=== PATIENT | female | born 1970 | race Caucasian/White ===

== ENCOUNTER → 2021-12-17 | Outpatient (CLI) | payer BC, SELFPAY ==
[2021-12-17 08:34] LABS: Microalbumin,Random Urine 7.9 mg/L (NO RANGE EST.); Microalbumin:Creatinine Ratio 10.4 mg/g CRE (<30 mg/g CRE)
[2021-12-17 08:51] LABS: Vitamin D,25 Hydroxy 42.1 ng/mL
[2021-12-17 09:05] LABS: ALB/GLOB Ratio 1.1 RATIO (0.9-2.4); AST(SGOT) 19 U/L (15-37); Alanine Aminotransfer ALT/SGPT 47 U/L (13-56); Albumin, Serum 3.8 g/dL (3.2-5.0); Alkaline Phosphatase 95 U/L (45-117); Anion Gap 6 (5-15); BUN 9 mg/dL (7-18); Calcium,Total 9.2 mg/dL (8.5-10.1); Chloride 104 mmol/L (98-107); Cholesterol 173 mg/dL (200); EST Glomerular Filtration Rate 71 mL/min (>60); Est Glom Filt Rate - Afr Amer 86 mL/min (>60); Globulin 3.6 g/dL (2.2-4.2); Glucose 134 mg/dL (74-106); High Density Lipoprotein 48 mg/dL; Potassium 4.2 mmol/L (3.5-5.1); Protein, Total 7.4 g/dL (6.4-8.2); Sodium Level 139 mmol/L (136-145); Thyroid Stim Hormone (TSH) 1.22 uIU/mL (0.358-3.74); Triglycerides 205 mg/dL; Very Low Density Lipoprotein 41 mg/dL (5-40)
== END | disposition home or self-care (01) ==
PROVIDERS: Referring Provider Nurse Practitioner Family; Visit Provider Nurse Practitioner Family
DX: E11.9 Type 2 diabetes mellitus without complications (principal); E55.9 Vitamin D deficiency, unspecified
CPT/HCPCS: 36415; 80053; 80061; 82043; 82306; 82570; 84443

== ENCOUNTER 2022-03-23 10:27 | Emergency (ER) | payer BC, SELFPAY ==
[2022-03-23 10:27] VITALS: BP 204/125; PULSE 89; RESP 18; TEMP 36; O2SAT 97; BMI 36.3
--- NOTE | 2022-03-23 10:59 | RAD_ITS ---
HISTORY: Neuro deficit, acute, stroke suspected. TECHNIQUE: XR Chest 1 View. COMPARISON: None. FINDINGS: CARDIOMEDIASTINAL BORDERS: Cardiac silhouette within normal limits in size. Mediastinal contour unremarkable. LUNGS: Radiographically clear. PLEURA: No pleural effusion or pneumothorax seen. OSSEOUS STRUCTURES: Mild degenerative change. RAD/Chest 1 View IMPRESSION: No acute cardiopulmonary process identified. Electronically Signed: Julienne Quick MD at 11:57 EST ,
--- NOTE | 2022-03-23 10:59 | CT_ITS ---
We are attempting to reach an attending provider to discuss findings. An addendum with communication details will be sent when the communication is complete. HISTORY: Neuro deficit, acute, stroke suspected. TECHNIQUE: Multiple axial images were obtained of the head without intravenous contrast. A radiation dose optimization technique was used for this scan. 252 images. COMPARISON: None. FINDINGS: BRAIN PARENCHYMA: No significant attenuation abnormality. No acute intra-axial hemorrhage. CSF SPACES: Cerebral ventricles, cortical sulci, and other extra-axial CSF spaces within normal limits in size for age. No midline shift or other significant mass effect. No acute extra-axial hemorrhage. OTHER: Intact calvarium. No significant air fluid levels in the paranasal sinuses or mastoid air cells. Unremarkable orbits. ASPECTS Score for Acute Strokes: 10 CT/STROKE Brain/Head without Cont IMPRESSION: No acute intracranial process identified. Electronically Signed: Julienne Quick MD at 12:18 EST ,
--- NOTE | 2022-03-23 10:59 | EKG12_ITS ---
Test Reason : GENERAL Blood Pressure : / mmHG Vent. Rate : 070 BPM Atrial Rate : 070 BPM P-R Int : 178 ms QRS Dur : 088 ms QT Int : 410 ms P-R-T Axes : 064 060 069 degrees QTc Int : 442 ms Normal sinus rhythm Normal ECG Confirmed by CHINEDU LEMA, RAFAEL ([id number]), news editor MCKENZIE BEAN ([id number]) on 03/24/2022 1:56:29 PM Referred By: Confirmed By:RAFAEL CHE MD
--- NOTE | 2022-03-23 11:00 | CT_ITS ---
HISTORY: Neuro deficit, acute, stroke suspected. TECHNIQUE: [place]/head and carotid CT angiogram protocol was performed after the intravenous administration of 100 mL Isovue 370. NASCET criteria using the distal ICAs for comparison were used for evaluation of stenoses. 3D reconstructions were reviewed. A radiation dose optimization technique was used for this scan. 1895 images. COMPARISON: CT head same day. FINDINGS: AORTIC ARCH AND BRANCHES: Normal anatomy, patent. RIGHT CCA: Motion artifact. No significant stenosis or occlusion. Mild atherosclerosis of the bifurcation. RIGHT ICA: No occlusion, significant stenosis or dissection. LEFT CCA: Motion artifact. No significant stenosis or occlusion. Mild atherosclerosis of the bifurcation. LEFT ICA: No occlusion, significant stenosis or dissection. Mild atherosclerosis of the origin. RIGHT VERTEBRAL ARTERY: No occlusion, significant stenosis or dissection. LEFT VERTEBRAL ARTERY: No occlusion, significant stenosis or dissection. SOFT TISSUES: Mildly enlarged right level 1 lymph node, which may be reactive. ICAs: No significant stenosis at the intracranial/visualized segments. ACAs: No significant stenosis at the visualized segments. MCAs: No significant stenosis at the visualized segments. duplicating machine mechanic: No significant stenosis at the visualized segments. BASILAR ARTERY: No significant stenosis. VERTEBRAL ARTERIES: No significant stenosis at the intradural/visualized segments. No evidence of intracranial aneurysm or vascular malformation. ICAs: No significant stenosis at the intracranial/visualized segments. Calcified plaque at both carotid siphons. ACAs: No significant stenosis at the visualized segments. MCAs: No significant stenosis at the visualized segments. duplicating machine mechanic: No significant stenosis at the visualized segments. BASILAR ARTERY: No significant stenosis. VERTEBRAL ARTERIES: No significant stenosis at the intradural/visualized segments. No evidence of intracranial aneurysm or vascular malformation. CT/STROKE CTA Head AND Neck W/Con IMPRESSION: Mild carotid atherosclerosis without significant stenosis or occlusion in the carotid or vertebral arteries of the neck. No evidence for large vessel occlusion or other significant focal vascular abnormality in the [place] region. N.B. : The above Results were Read Back by Julienne Quick MD to Mitesh [id number], and understanding confirmed on 03/23/2022 12:23:26 (ET). Electronically Signed: Julienne Quick MD at 12:24 EST ,
--- NOTE | 2022-03-23 11:02 | TELEMED_ITS ---
[facility] Telemed has confirmed receipt of a request for visit. This document confirms receipt of the order initiating the consult. To find the results of the consultation, please view the patient's reports for the scanned Telemed Consult.
[2022-03-23 11:16] LABS: Absolute Lymphocyte Count 2.93 X10^3/uL (0.83-4.51); Absolute Neutrophil Count 6.3 X10^3/uL (2.0-7.7); Basophil# 0.05 X10^3/uL; Basophil% 0.5 % (0-1); Eosinophil# 0.13 X10^3/uL; Eosinophils% 1.3 % (0-5); Hematocrit 48.9 % (37-47); Hemoglobin 16.5 g/dL (12.0-15.0); Lymphocyte # 2.93 X10^3/ul (0.83-4.51); Lymphocyte % 28.9 % (19-41); Mean Corp Hgb Conc 33.7 g/dL (32-36); Mean Corpuscular Hgb 29.3 pg (27.0-32.0); Mean Corpuscular Volume 86.9 fL (81-99); Mean Platelet Vol. 8.8 fl (6.2-12.0); Monocyte# 0.72 X10^3/uL; Monocyte% 7.1 % (0-10); NRBC Flagged by Analyzer 0 % (0-5); Neutrophil # 6.27 X10^3/uL (2.7-7.7); Neutrophil % 61.9 % (47-70); Platelet Count 252 K/mm3 (150-450); RBC Distribution Width CV 12.1 % (11.6-14.6); RBC Distribution Width SD 38.5 fl (35.1-43.9); Red Blood Count 5.63 M/mm3 (4.2-5.4); White Blood Count 10.1 K/mm3 (4.4-11.0)
[2022-03-23 11:23] VITALS: O2SAT 97
[2022-03-23 11:23] LABS: International Normalized Ratio 0.9; Prothrombin Time (Protime)PT. 12.3 SECONDS (11.7-14.9)
[2022-03-23 11:24] LABS: Partial Thromboplast Time 28.9 Seconds (24.1-36.2)
[2022-03-23 11:40] LABS: Anion Gap 7 (5-15); BUN 11 mg/dL (7-18); BUN/Creat Ratio 11.4 RATIO (10-20); Calcium,Total 9.6 mg/dL (8.5-10.1); Chloride 105 mmol/L (98-107); Creatinine, Serum 0.97 mg/dL (0.55-1.02); EST Glomerular Filtration Rate 65 mL/min (>60); Est Glom Filt Rate - Afr Amer 79 mL/min (>60); Estimated Creatinine Clearance 70.77 ml/min; Glucose 121 mg/dL (74-106); Potassium 4.3 mmol/L (3.5-5.1); Sodium Level 139 mmol/L (136-145); Troponin-I HS 4 pg/mL (3.0-54.0)
[2022-03-23 13:11] VITALS: BP 147/96; PULSE 70; RESP 15; O2SAT 98
--- NOTE | 2022-03-23 14:07 | EDS_ITS ---
HPI History of Present Illness Chief Complaint: Eye Problem Narrative Narrative: 51-year-old female presenting with visual disturbance. She states is predominantly in her left eye and she feels pain above her eye. She reports that about a week ago she fell and hit her head on the right side. On Thursday morning when she woke up she noticed the symptoms. She states that when she tilts her head to the right her vision is normal. When she tilts her head back or to the left she gets vertical diplopia in the left eye. She denies any other trauma. She denies nausea, vomiting. She has no headache. She is walking with a stable gait. She also reports he is able to drive her car without much difficulty. No slurred speech, paresthesias, confusion PFSH PFSH Medical History High cholesterol Home Medications acyclovir 200 mg capsule 200 mg PO BID 09/05/21 [History Last Taken Unknown] cholecalciferol (vitamin D3) 50 mcg (2,000 unit) capsule 50 mcg PO DAILY 09/05/21 [History Last Taken Unknown] lisinopril 20 mg tablet 20 mg PO DAILY 09/05/21 [History Last Taken Unknown] metformin 1,000 mg tablet 1,000 mg PO BID #180 tabs 09/05/21 [Rx Last Taken Unknown] rosuvastatin 10 mg tablet 10 mg PO DAILY 09/05/21 [History Last Taken Unknown] pen needle, diabetic 32 gauge x 5/32 (BD Ultra-Fine Kaelyn Pen Needle) #100 ea 10/08/21 [Rx Last Taken Unknown] amlodipine 5 mg tablet 5 mg PO DAILY #90 tabs 10/17/21 [Rx Last Taken Unknown] omega 1-phy-jht-fish oil 60 mg-90 mg-500 mg capsule (Fish Oil) 1 cap PO DAILY #90 caps 01/06/22 [Rx Last Taken Unknown] insulin detemir U-100 100 unit/mL (3 mL) subcutaneous pen (Levemir FlexTouch U- 100 Insulin) 40 unit (0.4 mL) subcut QHS #12 mL 02/27/22 [Rx Last Taken Unknown] tirzepatide 2.5 mg/0.5 mL subcutaneous pen injector (Mounjaro) 2.5 mg subcut TH 03/23/22 [History Last Taken Unknown] Allergy/AdvReac Type Severity Reaction Status Date / Time No Known Allergies Allergy Verified 03/23/22 10:29 Social History Smoking Status: Current every day smoker tobacco type: cigarettes ROS ROS ED Review of Systems ROS Unobtainable: Denies due to encephalopathy Constitutional Constitutional ED: Denies chills or fever(s) Eyes Eyes: Reports change in vision left ENT ENT ED: Denies ear pain or rhinorrhea Cardiovascular Cardiovascular: Denies chest pain or palpitations Respiratory/Chest Respiratory/Chest: Denies cough or dyspnea Gastrointestinal Gastrointestinal: Denies abdominal pain or constipation Genitourinary Genitourinary ED: Denies dysuria or hematuria Musculoskeletal Musculoskeletal: Denies arthralgias or back pain Integumentary Denies abscess or Abrasions Neurologic Neurologic: Denies headache(s) or paresthesias Psychiatric Psychiatric: Denies anxiety or depression EXAM Physical Exam Const Vital Signs: 03/23/22 10:27 03/23/22 11:23 03/23/22 13:11 Temperature 96.8 F L Temperature Source Temporal Pulse Rate 89 70 Respiratory Rate 18 15 Blood Pressure 204/125 H 147/96 H Blood Pressure Mean 151 113 Pulse Ox 97 97 98 Oxygen Delivery Method Room Air Room Air Room Air Positive well nourished General Appearance ED: NAD HEENT Reports TM's clear atraumatic Tympanic Membrane ED: Yes TM's clear bilateral Neck no lymphadenopathy Resp normal respiratory effort Cardio regular rate and regular rhythm GI non-tender Neuro oriented x3, moves all extremities and no sensory deficits noted Sensorium / Orientation: alert Motor Exam: strength 5/5 throughout Skin no wounds MDM MDM MDM Narrative Medical decision making narrative: Patient presenting with diplopia which she states is vertical. This started after a head injury over a week ago. I did not call a stroke team because of the timeframe. She would be outside the window for tPA even if she needed it. I will obtain work-up. With head tilting to the right her vision is clear with head tilting to the left and posteriorly she states she gets vertical diplopia. She has no other neurologic deficits. She feels otherwise well. Because the patient has a history of traumatic injury I did obtain lab work and imaging. I also included an EKG which on my interpretation is sinus rhythm with a ventricular to 70 bpm without sign of ischemic change or dysrhythmia. Her chest x-ray on my interpretation shows no acute cardiopulmonary process. Radiology interpreted this and agrees. CBC and BMP are unremarkable. PT/INR normal. CT of the brain and CTA of the head and neck are both negative. I did speak with the [facility] neurologist to try to receive a consult from them given that she is presenting with a 4th nerve palsy most likely. They did attempt tobeam in initially but apparently did not get a good exam on her. After her imaging has been resulted there has been delay secondary to them not beaming back in for consult. This was explained to the patient. We did recall them to come evaluate the patient. Her initial blood pressure was slightly elevated at 204/125. But after cycling this is now 147/96. I do not believe her blood pressure is a cause of the symptoms. I was unable to get an [facility] consult emergently. I did speak with Dr. Valle from ophthalmology. I discussed with him that I believe this is a 4th nerve palsy and given that its been a week I do not know that there is anything emergent about it. After discussion he stated that he could follow-up with her tomorrow and took her name. He states that she can call his office at 8 AM and he will get her in tomorrow. If she needs an MRI he can obtain that. Patient was amenable to this. She was discharged home in stable condition. Impression: 1. 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 Labs: Laboratory Results - last 24 hr 03/23/22 03/23/22 03/23/22 11:05 11:05 11:05 WBC 10.1 RBC 5.63 H Hgb 16.5 H Hct 48.9 H MCV 86.9 MCH 29.3 MCHC 33.7 RDW Std Deviation 38.5 RDW Coeff of Anabel 12.1 Plt Count 252 MPV 8.8 Immature Gran % (Auto) 0.300 Neut % (Auto) 61.9 Lymph % (Auto) 28.9 [place] % (Auto) 7.1 Eos % (Auto) 1.3 Baso % (Auto) 0.5 Absolute Neuts (auto) 6.3 Absolute Lymphs (auto) 2.93 Nucleated RBC % 0 PT 12.3 INR 0.9 APTT 28.9 Sodium 139 Potassium 4.3 Chloride 105 Carbon Dioxide 27.0 Anion Gap 7 BUN 11 Creatinine 0.97 Estim Creat Clear Calc 70.77 Est GFR (MDRD) Af Amer 79 Est GFR (MDRD) Non-Af 65 BUN/Creatinine Ratio 11.4 Glucose 121 H Calcium 9.6 Troponin I High Sens 4 Radiography Diagnostic Testing: Clinical Impression(s) from Imaging Studies Brain CT 03/23/22 10:59 IMPRESSION: No acute intracranial process identified. Electronically Signed: Julienne Quick MD at 12:18 EST , ADDENDUM: 03/23/22 1230 IMPRESSION: No acute intracranial process identified. N.B. : The above Results were Read Back by Julienne Quick MD to Mitesh Friedman MD, and understanding confirmed on 03/23/2022 12:23:23 (ET). Electronically Signed: Julienne Quick MD at 12:18 EST , Chest X-Ray 03/23/22 10:59 IMPRESSION: No acute cardiopulmonary process identified. Electronically Signed: Julienne Quick MD at 11:57 EST , Head/Neck CTA 03/23/22 11:00 IMPRESSION: Mild carotid atherosclerosis without significant stenosis or occlusion in the carotid or vertebral arteries of the neck. No evidence for large vessel occlusion or other significant focal vascular abnormality in the [place] region. N.B. : The above Results were Read Back by Julienne Quick MD to Mitesh Friedman MD, and understanding confirmed on 03/23/2022 12:23:26 (ET). Electronically Signed: Julienne Quick MD at 12:24 EST , ADDENDUM: 03/23/22 1231 IMPRESSION: Mild carotid atherosclerosis without significant stenosis or occlusion in the carotid or vertebral arteries of the neck. No evidence for large vessel occlusion or other significant focal vascular abnormality in the [place]. N.B. : The above Results were Read Back by Julienne Quick MD to Mitesh [id number], and understanding confirmed on 03/23/2022 12:23:26 (ET). Electronically Signed: Julienne Quick MD at 12:24 EST , Discharge Plan Triage Chief Complaint: Eye Problem ED Provider: Mitesh Garcia Dx/Rx/DC Orders Instructions: ED Double Vision (Diplopia) Prescriptions: No Action lisinopril 20 mg tablet 20 mg PO DAILY rosuvastatin 10 mg tablet 10 mg PO DAILY acyclovir 200 mg capsule 200 mg PO BID cholecalciferol (vitamin D3) 50 mcg (2,000 unit) capsule 50 mcg PO DAILY metformin 1,000 mg tablet 1,000 mg PO BID Qty: 180 3RF amlodipine 5 mg tablet 5 mg PO DAILY Qty: 90 3RF Mounjaro 2.5 mg/0.5 mL pen injector 2.5 mg subcut TH (DME) pen needle, diabetic [BD Ultra-Fine Kaelyn Pen Needle] 32 gauge x 5/32 needle See Rx Instructions .Route Qty: 100 3RF Rx Instructions: once daily omega 9-ezq-nvq-fish oil [Fish Oil] 60-90-500 mg capsule 1 cap PO DAILY Qty: 90 3RF Levemir FlexTouch U-100 Insuln 100 unit/mL (3 mL) insulin pen 40 unit subcut QHS Qty: 12 3RF Primary Care Provider: Taisha Villarreal ACADEMIC ADMINISTRATOR Referrals: Edward Valle MD [Med Staff - Active Staff] - 1 Day Older,Taisha ACADEMIC ADMINISTRATOR, ACADEMIC ADMINISTRATOR-C [Primary Care Provider] - Disposition Disposition: Home, Self Care
--- NOTE | 2022-03-23 15:06 | ED.RN ---
AT 1100, THIS RN RECEIVED PHONE CALL FROM [facility] TELE-NEUROLOGY ASKING TO SEE PT. SOC REQUESTING THAT PT HAVE CT DONE PRIOR TO THEM BEAMING IN TO EVALUATE THE PATIENT. THIS RN ARRANGES FOR PT TO TAKEN TO CT RIGHT AWAY, AND REPORTS THAT SHE WILL CALL THE SOC LINE BACK SOON PT RETURNS FROM HAVING IMAGES COMPLETED. 1120- THIS RN CALLS BACK TO SOC TO REPORT PT HAS RETURNED TO THE ROOM. SOC REPORTS THAT SHE WILL BE EVALUATED SHORTLY. 1400- PRIMARY RN INFORMS THIS RN THAT THE PT HAS STILL NOT BEEN EVALUATED BY SOC. THIS RN CONTACTS SOC WHO REPORTS THAT PT IS STILL IN LINE TO BE SEEN AND THAT SHE SHOULD BE EVALUATED IN 10-20 MINUTES. 1420- THIS RN IS INFORMED BY PRIMARY RN THAT PT STILL NEEDS TO BE EVALUATED BY SOC. THIS RN CALLS BACK TO SOC. PER SOC WORKER THE ORDER WAS PLACED FOR A ROUTINE EXAMINATION AND NOT A STAT EXAMINATION. THIS RN REPORTS THAT OUR ED MD ORDERED THE CONSULT A STAT CONSULT. SOC REPORTS THAT PT IS STILL IN LINE TO BE SEEN. 1440- PT REPORTS THAT SHE WANTS TO LEAVE BECAUSE SHE STILL HAS NOT BEEN EVALUATED BY SOC YET. DR. RICHARDS INFORMED.
== END 2022-03-23 15:17 | disposition home or self-care (01) ==
PROVIDERS: Emergency Provider Student in an Organized Health Care Education/Training Program; PCP Nurse Practitioner; Visit Provider Student in an Organized Health Care Education/Training Program
DX: G51.0 Bell's palsy (principal); Z79.4 Long term (current) use of insulin; E78.00 Pure hypercholesterolemia, unspecified; F17.210 Nicotine dependence, cigarettes, uncomplicated; Z79.84 Long term (current) use of oral hypoglycemic drugs; Z79.899 Other long term (current) drug therapy
CPT/HCPCS: 70450; 70496; 70498; 71045; 80048; 84484; 85025; 85610; 85730; 93005; 99285; Q9967; A4216

== ENCOUNTER → 2022-12-25 | Outpatient (CLI) | payer BC, SELFPAY ==
[2022-12-25 10:15] LABS: Vitamin D,25 Hydroxy 56.1 ng/mL
[2022-12-25 10:28] LABS: ALB/GLOB Ratio 1.1 RATIO (0.9-2.4); AST(SGOT) 21 U/L (15-37); Alanine Aminotransfer ALT/SGPT 56 U/L (13-56); Alkaline Phosphatase 101 U/L (45-117); Anion Gap 4 (5-15); BUN 10 mg/dL (7-18); BUN/Creat Ratio 10.8 RATIO (10-20); Calcium,Total 9.6 mg/dL (8.5-10.1); Chloride 107 mmol/L (98-107); Cholesterol 129 mg/dL (200); Creatinine, Serum 0.93 mg/dL (0.55-1.02); EST Glomerular Filtration Rate 68 mL/min (>60); Est Glom Filt Rate - Afr Amer 82 mL/min (>60); Globulin 3.6 g/dL (2.2-4.2); Glucose 103 mg/dL (74-106); High Density Lipoprotein 55 mg/dL; Potassium 4.3 mmol/L (3.5-5.1); Protein, Total 7.6 g/dL (6.4-8.2); Sodium Level 140 mmol/L (136-145); Thyroid Stim Hormone (TSH) 0.83 uIU/mL (0.358-3.74); Triglycerides 102 mg/dL; Very Low Density Lipoprotein 20 mg/dL (5-40)
[2022-12-25 10:39] LABS: Microalbumin,Random Urine 10.3 mg/L (NO RANGE EST.); Microalbumin:Creatinine Ratio 17.5 mg/g CRE (<30 mg/g CRE)
== END | disposition home or self-care (01) ==
LOC: LAB 09:06
PROVIDERS: PCP Nurse Practitioner; Referring Provider Nurse Practitioner Family; Visit Provider Nurse Practitioner Family
DX: E78.00 Pure hypercholesterolemia, unspecified (principal); E11.9 Type 2 diabetes mellitus without complications; E66.9 Obesity, unspecified; E55.9 Vitamin D deficiency, unspecified; I10 Essential (primary) hypertension
CPT/HCPCS: 36415; 80053; 80061; 82043; 82306; 82570; 84443

== ENCOUNTER 2023-04-08 08:23 | Emergency (ER) | payer BC, SELFPAY ==
[2023-04-08 08:24] VITALS: BP 136/87; PULSE 86; RESP 14; TEMP 36.2; O2SAT 100; BMI 32.6
--- NOTE | 2023-04-08 08:50 | EX.ED.DYSGE1 ---
HPI History of Present Illness Chief Complaint: Palpitations Informant: patient Narrative Narrative: 52-year-old female presenting to the emergency room chief complaint of palpitations. Patient states that during the night last night she had about 4 episodes where she would wake from sleep with a fast heart rate. She states it would slow down speed up again. She felt her heart beating strong. Patient denies any chest pain or shortness of breath. She does note that she is under significant amount of stress that she is buying a house. Patient denies any new medications but did have her tirzepatide increased about 1 month ago. No known thyroid issues. She drinks 2 cups of coffee per day with chicory in it. She has not felt the symptoms in the past. She does note that she probably has a degree of sleep apnea but does not have a formal sleep study. She does not use CPAP. [facility] Medical History (Updated 04/08/23 @ 09:[address] Devante Lee, ) Diabetes High cholesterol Hypertension Home Medications acyclovir 200 mg capsule 200 mg PO BID 09/05/21 [History Last Taken Unknown] lisinopril 20 mg tablet 20 mg PO DAILY 09/05/21 [History Last Taken Unknown] rosuvastatin 10 mg tablet 10 mg PO DAILY 09/05/21 [History Last Taken Unknown] pen needle, diabetic 32 gauge x 5/32 (BD Ultra-Fine Kaelyn Pen Needle) #100 ea 10/08/21 [Rx Last Taken Unknown] metformin 1,000 mg tablet 1,000 mg PO BID #180 tabs 07/30/22 [Rx Last Taken Unknown] Levemir FlexPen 100 unit/mL (3 mL) solution subcutaneous insulin pen (insulin detemir U-100) 40 unit (0.4 mL) subcut QHS #45 mL 09/01/22 [Rx Last Taken Unknown] amlodipine 5 mg tablet 5 mg PO DAILY #90 tabs 11/10/22 [Rx Last Taken Unknown] cholecalciferol (vitamin D3) 50 mcg (2,000 unit) capsule 50 mcg PO DAILY #30 caps 11/10/22 [Rx Last Taken Unknown] tirzepatide 10 mg/0.5 mL subcutaneous pen injector (Mounjaro) 10 mg (0.5 mL) subcut QWEEK #2 mL 12/25/22 [Rx Last Taken Unknown] tirzepatide 7.5 mg/0.5 mL subcutaneous pen injector (Mounjaro) 7.5 mg (0.5 mL) subcut QWEEK #2 mL 01/12/23 [Rx Last Taken Unknown] omega 1-drb-rse-fish oil 60 mg-90 mg-500 mg capsule (Fish Oil) 1 cap PO DAILY #90 caps 01/22/23 [Rx Last Taken Unknown] Allergy/AdvReac Type Severity Reaction Status Date / Time No Known Allergies Allergy Verified 04/08/23 08:25 Social History Smoking Status: Current every day smoker tobacco type: cigarettes ROS ROS ED Constitutional Constitutional ED: Denies chills, fever(s) or weight loss Eyes Eyes: Denies change in vision or diplopia ENT ENT ED: Denies ear pain, rhinorrhea or sore throat Cardiovascular Cardiovascular: Reports palpitations and racing heartbeat; Denies chest pain or orthopnea Respiratory/Chest Respiratory/Chest: Denies cough, dyspnea or orthopnea Gastrointestinal Gastrointestinal: Denies abdominal pain, diarrhea, nausea or vomiting Genitourinary Genitourinary ED: Denies dysuria, hematuria or urinary frequency Musculoskeletal Musculoskeletal: Denies arthralgias or myalgias Integumentary Denies abscess or rash Neurologic Neurologic: Denies headache(s) or weakness Psychiatric Psychiatric: Denies anxiety, depression, suicidal ideation or suicidal thoughts Endocrine Endocrinology: Denies polydipsia, polyphagia or polyuria Allergic/Immunologic Allergic/Immunologic ED: Denies mouth swelling, tongue swelling or urticaria EXAM Physical Exam Const Vital Signs: 04/08/23 08:24 04/08/23 08:23 Temperature 97.1 F L Temperature Source Temporal Pulse Rate 86 Respiratory Rate 14 Respiratory Effort Normal Blood Pressure 136/87 H Blood Pressure Mean 103 Pulse Ox 100 Oxygen Delivery Method Room Air Positive well nourished and well developed General Appearance ED: well developed HEENT Reports normocephalic, head/scalp atraumatic and moist mucous membranes Eyes PERRL and EOMs intact bilaterally Neck no lymphadenopathy, supple and no JVD Resp normal respiratory effort and clear to auscultation bilaterally Cardio regular rate, regular rhythm and no murmurs GI normal to inspection, nondistended, normoactive bowel sounds and non-tender Palpation: soft Back/Spine no CVA tenderness and normal ROM Extremity normal to inspection General Extremety ED: Negative for edema General Extremity: Negative for edema Neuro oriented x3 and CN's II-XII intact bilaterally Sensorium / Orientation: alert Motor Exam: strength 5/5 throughout Psych mental status grossly normal Mood & Affect: Negative for depressed or tearful Skin no rashes or lesions noted and no wounds MDM MDM MDM Narrative Medical decision making narrative: My independent interpretation of the chest x-ray is no acute process. Normal mediastinal silhouette. Patient has had no events on the monitor and remains in a normal sinus rhythm. Hemoglobin 14.9. Sodium 137 potassium 4.0 magnesium 2.4 troponin high-sensitivity at 6 TSH is 0.81. I spoke with the patient regarding her symptoms. At this point her workup is negative. My recommendation is that she follow-up with primary care. If she continues to have intermittent symptoms she may need further cardiac evaluation such as echocardiogram and/or Holter monitor. She understands return instructions. We talked about how to take her heart rate by feeling the radial or carotid pulse. Patient is comfortable with follow-up. History & Record Review Discussion w/independent historian: Patient Lab Data Attestation: I reviewed the patient's lab results. Labs: Laboratory Results - last 24 hr 04/08/23 08:24 WBC 7.6 RBC 5.02 Hgb 14.9 Hct 45.3 MCV 90.2 MCH 29.7 MCHC 32.9 RDW Std Deviation 43.5 RDW Coeff of [place]abel 13.2 Plt Count 252 MPV 9.1 Immature Gran % (Auto) 0.300 Neut % (Auto) 54.8 Lymph % (Auto) 29.9 [place] % (Auto) 10.7 H Eos % (Auto) 3.6 Baso % (Auto) 0.7 Absolute Neuts (auto) 4.2 Absolute Lymphs (auto) 2.26 Nucleated RBC % 0 Sodium 137 Potassium 4.0 Chloride 109 H Carbon Dioxide 26.0 Anion Gap 2 L BUN 13 Creatinine 0.94 Estim Creat Clear Calc 87.34 Est GFR (MDRD) Af Amer 81 Est GFR (MDRD) Non-Af 67 BUN/Creatinine Ratio 13.8 Glucose 74 Calcium 9.6 Magnesium 2.4 Troponin I High Sens 6 TSH 0.81 Radiography Diagnostic Testing: Clinical Impression(s) from Imaging Studies Chest X-Ray 04/08/23 08:54 IMPRESSION: Hyperinflation. No acute abnormality is seen. Electronically Signed: John Mendiola MD at 9:08 EST , EKG Initial EKG: Attestation: I personally reviewed and interpreted this EKG as follows: Comments: Normal sinus rhythm with a ventricular rate of 80 bpm. No evidence of QT prolongation or preexcitation noted. Discharge Plan Triage Chief Complaint: Palpitations ED Provider: Devante Lee Dx/Rx/DC Orders Clinical Impression: Palpitations, Diabetes, Hypertension Prescriptions: No Action lisinopril 20 mg tablet 20 mg PO DAILY rosuvastatin 10 mg tablet 10 mg PO DAILY acyclovir 200 mg capsule 200 mg PO BID Mounjaro 10 mg/0.5 mL pen injector 10 mg subcut QWEEK Qty: 2 5RF (DME) pen needle, diabetic [BD Ultra-Fine Kaelyn Pen Needle] 32 gauge x 5/32 needle See Rx Instructions .Route Qty: 100 3RF Rx Instructions: once daily metformin 1,000 mg tablet 1,000 mg PO BID Qty: 180 3RF Levemir FlexPen 100 unit/mL (3 mL) insulin pen 40 unit subcut QHS Qty: 45 3RF cholecalciferol (vitamin D3) 50 mcg (2,000 unit) capsule 50 mcg PO DAILY Qty: 30 12RF amlodipine 5 mg tablet 5 mg PO DAILY Qty: 90 3RF Mounjaro 7.5 mg/0.5 mL pen injector 7.5 mg subcut QWEEK Qty: 2 3RF omega 5-ctk-guk-fish oil [Fish Oil] 60-90-500 mg capsule 1 cap PO DAILY Qty: 90 3RF Primary Care Provider: Taisha Naylor NP Referrals: Taisha Naylor SUPERVISOR LAMP SHADES, SUPERVISOR LAMP SHADES-C [Primary Care Provider] -
--- NOTE | 2023-04-08 08:54 | RAD_ITS ---
STUDY: X-RAY CHEST REASON FOR EXAM: Female, 52 years old. Palpitations TECHNIQUE: Single AP portable view of the chest. COMPARISON: Comparison is made with prior study dated March 23, 2022. FINDINGS: EKG electrodes are seen. There is hyperinflation of the lungs consistent with chronic obstructive lung disease (COPD). There is no demonstrated pleural abnormality. Normal size heart. Normal mediastinum and pooja. Normal visualized pulmonary arteries. Normal visualized aortic arch and descending thoracic aorta. There are diffuse degenerative changes of the visualized thoracic spine. Normal visualized ribs, clavicles, and shoulders. There is no demonstrated abnormality of the visualized soft tissue structures of the upper abdomen. RAD/Chest 1 View (Portable) IMPRESSION: Hyperinflation. No acute abnormality is seen. Electronically Signed: John Mendiola MD at 9:08 EST ,
[2023-04-08 09:26] LABS: Absolute Lymphocyte Count 2.26 X10^3/uL (0.83-4.51); Absolute Neutrophil Count 4.2 X10^3/uL (2.0-7.7); Basophil# 0.05 X10^3/uL; Basophil% 0.7 % (0-1); Eosinophil# 0.27 X10^3/uL; Eosinophils% 3.6 % (0-5); Hematocrit 45.3 % (37-47); Hemoglobin 14.9 g/dL (12.0-15.0); Lymphocyte # 2.26 X10^3/ul (0.83-4.51); Lymphocyte % 29.9 % (19-41); Mean Corp Hgb Conc 32.9 g/dL (32-36); Mean Corpuscular Hgb 29.7 pg (27.0-32.0); Mean Corpuscular Volume 90.2 fL (81-99); Mean Platelet Vol. 9.1 fl (6.2-12.0); Monocyte# 0.81 X10^3/uL; Monocyte% 10.7 % (0-10); NRBC Flagged by Analyzer 0 % (0-5); Neutrophil # 4.15 X10^3/uL (2.7-7.7); Neutrophil % 54.8 % (47-70); Platelet Count 252 K/mm3 (150-450); RBC Distribution Width CV 13.2 % (11.6-14.6); RBC Distribution Width SD 43.5 fl (35.1-43.9); Red Blood Count 5.02 M/mm3 (4.2-5.4); White Blood Count 7.6 K/mm3 (4.4-11.0)
[2023-04-08 09:32] LABS: Anion Gap 2 (5-15); BUN 13 mg/dL (7-18); BUN/Creat Ratio 13.8 RATIO (10-20); Calcium,Total 9.6 mg/dL (8.5-10.1); Chloride 109 mmol/L (98-107); Creatinine, Serum 0.94 mg/dL (0.55-1.02); EST Glomerular Filtration Rate 67 mL/min (>60); Est Glom Filt Rate - Afr Amer 81 mL/min (>60); Estimated Creatinine Clearance 87.34 ml/min; Glucose 74 mg/dL (74-106); Magnesium 2.4 mg/dL (1.6-2.6); Sodium Level 137 mmol/L (136-145); Thyroid Stim Hormone (TSH) 0.81 uIU/mL (0.358-3.74); Troponin-I HS 6 pg/mL (3.0-54.0)
[2023-04-08 10:14] VITALS: BP 130/81; PULSE 73; RESP 16; O2SAT 93
== END 2023-04-08 10:17 | disposition home or self-care (01) ==
PROVIDERS: Emergency Provider Emergency Medicine; PCP Nurse Practitioner; Visit Provider Emergency Medicine
DX: R00.2 Palpitations (principal); E11.9 Type 2 diabetes mellitus without complications; I10 Essential (primary) hypertension; F17.210 Nicotine dependence, cigarettes, uncomplicated
CPT/HCPCS: 71045; 80048; 83735; 84443; 84484; 85025; 93005; 99284

== ENCOUNTER → 2023-12-24 | Outpatient (CLI) | payer BC, SELFPAY ==
[2023-12-24 09:56] LABS: Absolute Lymphocyte Count 2.16 X10^3/uL (0.83-4.51); Absolute Neutrophil Count 5.1 X10^3/uL (2.0-7.7); Basophil# 0.03 X10^3/uL; Basophil% 0.4 % (0-1); Eosinophil# 0.12 X10^3/uL; Eosinophils% 1.5 % (0-5); Hematocrit 44.4 % (37-47); Hemoglobin 14.5 g/dL (12.0-15.0); Lymphocyte # 2.16 X10^3/ul (0.83-4.51); Lymphocyte % 26.8 % (19-41); Mean Corp Hgb Conc 32.7 g/dL (32-36); Mean Corpuscular Hgb 29.7 pg (27.0-32.0); Mean Corpuscular Volume 90.8 fL (81-99); Mean Platelet Vol. 9.4 fl (6.2-12.0); Monocyte# 0.63 X10^3/uL; Monocyte% 7.8 % (0-10); NRBC Flagged by Analyzer 0 % (0-5); Neutrophil # 5.08 X10^3/uL (2.7-7.7); Platelet Count 237 K/mm3 (150-450); RBC Distribution Width CV 12.8 % (11.6-14.6); RBC Distribution Width SD 42.3 fl (35.1-43.9); Red Blood Count 4.89 M/mm3 (4.2-5.4); White Blood Count 8.1 K/mm3 (4.4-11.0)
[2023-12-24 10:34] LABS: Microalbumin:Creatinine Ratio 11.4 mg/g CRE (<30 mg/g CRE)
[2023-12-24 10:45] LABS: ALB/GLOB Ratio 1.1 RATIO (0.9-2.4); AST(SGOT) 20 U/L (15-37); Alanine Aminotransfer ALT/SGPT 42 U/L (13-56); Albumin, Serum 3.9 g/dL (3.2-5.0); Alkaline Phosphatase 102 U/L (45-117); Anion Gap 6 (5-15); BUN 12 mg/dL (7-18); BUN/Creat Ratio 13.7 RATIO (10-20); Calcium,Total 9.4 mg/dL (8.5-10.1); Chloride 107 mmol/L (98-107); Cholesterol 128 mg/dL (200); Creatinine, Serum 0.88 mg/dL (0.55-1.02); EST Glomerular Filtration Rate 72 mL/min (>60); Est Glom Filt Rate - Afr Amer 88 mL/min (>60); Globulin 3.4 g/dL (2.2-4.2); Glucose 121 mg/dL (74-106); High Density Lipoprotein 53 mg/dL; Potassium 4.5 mmol/L (3.5-5.1); Protein, Total 7.3 g/dL (6.4-8.2); Sodium Level 138 mmol/L (136-145); Thyroid Stim Hormone (TSH) 0.827 uIU/mL (0.358-3.740); Triglycerides 158 mg/dL; Very Low Density Lipoprotein 32 mg/dL (5-40)
[2023-12-24 11:05] LABS: HIV - WCH Non-Reactive (Nonreactive); Hepatitis C Antibody Non-Reactive (Nonreactive); Vitamin B12 287 pg/mL (211-911); Vitamin D,25 Hydroxy 46.9 ng/mL
== END | disposition home or self-care (01) ==
LOC: LAB 08:57
PROVIDERS: PCP Nurse Practitioner; Referring Provider Nurse Practitioner Family; Visit Provider Nurse Practitioner Family
DX: E11.9 Type 2 diabetes mellitus without complications (principal); Z79.4 Long term (current) use of insulin; Z11.4 Encounter for screening for human immunodeficiency virus [HIV]; Z11.59 Encounter for screening for other viral diseases; E78.00 Pure hypercholesterolemia, unspecified; I10 Essential (primary) hypertension; E66.9 Obesity, unspecified; E55.9 Vitamin D deficiency, unspecified
CPT/HCPCS: 80053; 80061; 82043; 82306; 82570; 82607; 84443; 85025; 86703; 86803